=== PATIENT | male | born 1945 | race Caucasian/White ===

== ENCOUNTER 2022-09-18 07:58 | Inpatient (IN) ==
[2022-09-18] MEDS ORDERED: HYDROmorphone 1 MG/ML SYRINGE IV ONE ×2 (08:08→11:25)
--- NOTE | 2022-09-18 08:08 | Emergency Department Note ---
HPI General Chief complaint: Fall Stated complaint: Fall Time Seen by Provider: 09/18/22 08:07 Source: EMS Mode of arrival: EMS Limitations: physical limitation History of Present Illness HPI Narrative: Narrative: Patient is a 76-year-old male with no significant past medical history who presents to the emergency department due to fall. Patient states that this morning at 6 AM he slipped and fell onto his right side. He states that he immediately had significant pain of his right hip. He states that he was unable to get up to walk due to the pain. He states that he was able to get up with a walker and put some pressure on that right leg, but states that it was very painful. He denies hitting his head. He states he did not have loss of consciousness, and remembers the entire event. He denies headache, nausea, vomiting at this time. He states that he has lower back pain, but that this is not any different than his normal back pain. He denies any other symptoms at this time. Related Data Allergies Allergy/AdvReac Type Severity Reaction Status Date / Time No Known Drug Allergies Allergy Verified 09/18/22 08:01 Review of Systems ROS ROS Narrative: Narrative: Constitutional: Denies fever or weakness Eyes: Denies eye pain or vision change ENT ED: Denies throat pain, hearing loss or rhinorrhea Cardiovascular: Denies chest pain, dyspnea on exertion, orthopnea or edema Respiratory: Denies shortness of breath or cough Gastrointestinal: Denies abdominal pain, nausea, vomiting, diarrhea, constipation, hematochezia or melena Genitourinary: Denies dysuria, frequency, hematuria or incontinence Musculoskeletal: Reports joint pain (Right hip); Denies back pain or myalgia Integumentary: Denies rash or lesions Neurological: Denies headache, weakness, numbness, confusion, abnormal gait or dizziness Endocrine: Denies fatigue or polyuria Hematological/Lymphatic: Denies easy bleeding or easy bruising [facility] Narrative Patient History Narrative: Narrative: Medical/Surgical/Family History All Active Problems (Updated 09/19/22 @ 16:04 by Alex Dsouza MD) Closed hip fracture (Acute) Encounter for examination required by Department of Transportation (DOT) (Acute) Cellulitis (Acute) Urinary hesitancy (Acute) Low back pain (Acute) History of prostate cancer (Acute) Medical History Low back pain Urinary hesitancy Social History Smoking Status: Never smoker Exam Narrative Narrative: Narrative: General Limitations: physical limitation General appearance: Present alert and in no apparent distress; Absent anxious, appears intoxicated or sleepy Head Head: Present atraumatic and normocephalic Eye Eye: Present PERRL, EOMI and visual cuadra intact; Absent scleral icterus or nystagmus ENT ENT: Present mucous membranes moist; Absent nasal congestion Neck Neck: Present full ROM; Absent tenderness Chest Chest: Present normal inspection and symmetric chest wall rise; Absent tenderness Respiratory Respiratory: Present normal lung sounds bilaterally; Absent respiratory distress or accessory muscle use Cardiovascular Cardiovascular: Present regular rate, normal rhythm and normal heart sounds Adbominal Abdominal: Present soft and normal bowel sounds; Absent distention or tenderness Extremities Extremities: Present normal inspection, full ROM and tenderness (Right hip); Absent pedal edema, pretibial edema or calf tenderness Back Back: Present normal inspection and full ROM; Absent tenderness Neurological Neurological: Present alert and oriented X3 Psychiatric Psychiatric: Present normal affect and normal mood Skin Skin: Present warm (WNL), dry and normal color Course Vital Signs Vital signs: Vital Signs Pulse Rate 76 09/18/22 08:13 Blood Pressure 145/73 09/18/22 08:13 Pulse Oximetry (%) 98 09/18/22 08:13 Temperature 97.9 F 09/19/22 12:55 Pulse Rate 78 09/19/22 12:55 Respiratory Rate 10 L 09/19/22 10:34 Blood Pressure 127/66 09/19/22 12:55 Pulse Oximetry (%) 97 09/19/22 12:55 Oxygen Delivery Method 09/19/22 12:55 Oxygen Flow Rate (L/min) 6 09/19/22 09:55 [facility] MDM Narrative Medical decision making narrative: Narrative: Patient is a 76-year-old male who presents to the emergency department due to right hip pain. Patient had a fall and now has right hip pain and tenderness. X-ray has been performed and demonstrates right femoral neck fracture. I have discussed patient with on-call orthopedist and he has agreed to see and evaluate patient for surgery and admission. Lab Data Result diagrams: 09/18/22 08:36 09/18/22 08:36 Labs: Lab Results 09/18/22 09/18/2222 Range/Units 08:36 08:36 08:36 WBC 6.6 (4.5-11.0) K/mcL RBC 4.90 (4.63-6.08) M/mcL Hgb 13.5 L (13.7-17.5) g/dL Hct 41.4 (40.1-51.0) % POC Hct (41-55) MCV 84.5 (80.0-100.0) fL MCH 27.6 (26.0-34.0) pg MCHC 32.6 (31.0-36.0) g/dL RDW 13.0 (11.5-14.5) % Plt Count 224 (140-440) K/mcL MPV 10.1 (8.8-12.5) fL Immature Gran % (Auto) 0.6 H (0.0-0.5) % Neut % (Auto) 83.7 H (38.0-78.0) % Lymph % (Auto) 8.9 L (15.5-49.0) % [place] % (Auto) 6.0 (1.0-12.0) % Eos % (Auto) 0.5 (0.0-7.0) % Baso % (Auto) 0.3 (0.0-2.0) % Lymph # (Auto) 0.59 L (1.50-4.80) K/mcL [place] # (Auto) 0.40 (0.10-0.90) K/mcL Eos # (Auto) 0.03 (0.00-0.70) K/mcL Baso # (Auto) 0.02 (0.00-0.30) K/mcL Immature Gran # 0.04 (0.00-0.05) K/mcl Absolute Neutrophils 5.56 (1.80-8.00) K/mcL PT 13.7 (11.9-14.5) sec INR 1.0 (0.9-1.1) POC Sodium (133-145) Sodium 138 (133-145) mmol/L POC Potassium (3.3-5.1) Potassium 3.5 (3.3-5.1) mmol/L POC Chloride (96-108) Chloride 103 (96-108) mmol/L Carbon Dioxide 25 (22-30) mmol/L POC Total CO2 (22-30) Anion Gap 10.0 (8.0-16.0) POC BUN (6-20) BUN 13 (8-23) mg/dL Creatinine 0.7 (0.7-1.2) mg/dL POC Creatinine (0.6-1.2) GFR Calculation 92 Glucose 109 H (70-105) mg/dL POC Glucose (70-105) Calcium 9.2 (8.6-10.4) mg/dL POC WB Ioniz Calcium (1.16-1.32) Total Bilirubin 0.7 (0.1-1.0) mg/dL AST 30 (<40) U/L ALT 27 (<40) U/L Alkaline Phosphatase 88 (39-117) U/L Total Protein 6.5 (5.9-8.4) gm/dL Albumin 4.2 (3.2-5.2) gm/dL Globulin 2.3 (2.2-3.7) gm/dL Albumin/Globulin Ratio 1.8 (1.0-2.3) 09/18/22 Range/Units 08:41 WBC (4.5-11.0) K/mcL RBC (4.63-6.08) M/mcL Hgb (13.7-17.5) g/dL Hct (40.1-51.0) % POC Hct 42.0 (41-55) MCV (80.0-100.0) fL MCH (26.0-34.0) pg MCHC (31.0-36.0) g/dL RDW (11.5-14.5) % Plt Count (140-440) K/mcL MPV (8.8-12.5) fL Immature Gran % (Auto) (0.0-0.5) % Neut % (Auto) (38.0-78.0) % Lymph % (Auto) (15.5-49.0) % [place] % (Auto) (1.0-12.0) % Eos % (Auto) (0.0-7.0) % Baso % (Auto) (0.0-2.0) % Lymph # (Auto) (1.50-4.80) K/mcL [place] # (Auto) (0.10-0.90) K/mcL Eos # (Auto) (0.00-0.70) K/mcL Baso # (Auto) (0.00-0.30) K/mcL Immature Gran # (0.00-0.05) K/mcl Absolute Neutrophils (1.80-8.00) K/mcL PT (11.9-14.5) sec INR (0.9-1.1) POC Sodium 140 (133-145) Sodium (133-145) mmol/L POC Potassium 3.5 (3.3-5.1) Potassium (3.3-5.1) mmol/L POC Chloride 104 (96-108) Chloride (96-108) mmol/L Carbon Dioxide (22-30) mmol/L POC Total CO2 26.0 (22-30) Anion Gap (8.0-16.0) POC BUN 15 (6-20) BUN (8-23) mg/dL Creatinine (0.7-1.2) mg/dL POC Creatinine 0.7 (0.6-1.2) GFR Calculation Glucose (70-105) mg/dL POC Glucose 107 H (70-105) Calcium (8.6-10.4) mg/dL POC WB Ioniz Calcium 1.16 (1.16-1.32) Total Bilirubin (0.1-1.0) mg/dL AST (<40) U/L ALT (<40) U/L Alkaline Phosphatase (39-117) U/L Total Protein (5.9-8.4) gm/dL Albumin (3.2-5.2) gm/dL Globulin (2.2-3.7) gm/dL Albumin/Globulin Ratio (1.0-2.3) Discharge Plan Patient/Caregiver Discharge Instructions Pt seen by FLOOR SERVICE WORKER SPRING/PA only: No Clinical Impression: Closed hip fracture Activity: ambulate only with your walker, increase activity as tolerated and as instructed Patient Disposition: Xfer As Inpt ([facility]) Discharge Date/Time: 09/18/22 12:22
[2022-09-18 08:44] LABS: POC Calcium, Ionized 1.16 (1.16-1.32); POC Creatinine 0.7 (0.6-1.2); POC Potassium 3.5 (3.3-5.1)
--- NOTE | 2022-09-18 08:52 | XRay Report ---
HISTORY: Fell with right hip pain and tenderness FINDINGS: There is an acute transverse fracture through the femoral neck. There is no impaction but there is mild lateral displacement of the shaft. The femoral head is normal and normally centered within the acetabulum. There is no underlying arthritis. There are numerous radiation implant seeds in the prostate. No bone metastasis are present. There is degenerative disc disease and arthritis at L4-5 and L5-S1. IMPRESSION: Minimally displaced fracture of the right femoral neck Interpreted and Authenticated by: Karri Delgado 09/18/22
--- NOTE | 2022-09-18 08:54 | XRay Report ---
HISTORY: Preop for hip fracture repair FINDINGS: At the left apex overlying the anterior border of the left first rib there is a dense 1.8 cm density. The lungs are otherwise clear and well expanded. The heart size and pulmonary vasculature are normal. There is no pleural effusion. Aorta is mildly tortuous. IMPRESSION: Nodular density in the left upper thorax. Although this could be a lung nodule, I suspected it is a benign growth arising from the left anterior first rib. Follow-up is suggested. Interpreted and Authenticated by: Karri Delgado 09/18/22
[2022-09-18 09:14] LABS: Basophils # (Auto) 0.02 K/mcL (0.00-0.30); Basophils % (Auto) 0.3 % (0.0-2.0); Eosinophils # (Auto) 0.03 K/mcL (0.00-0.70); Eosinophils % (Auto) 0.5 % (0.0-7.0); Hematocrit 41.4 % (40.1-51.0); Hemoglobin 13.5 g/dL (13.7-17.5); Lymphocytes # (Auto) 0.59 K/mcL (1.50-4.80); Lymphocytes % (Auto) 8.9 % (15.5-49.0); Mean Cell Volume 84.5 fL (80.0-100.0); Mean Corpuscular HGB Conc 32.6 g/dL (31.0-36.0); Mean Platelet Volume 10.1 fL (8.8-12.5); Neutrophils % (Auto) 83.7 % (38.0-78.0); Platelet Count 224 K/mcL (140-440); WBC 6.6 K/mcL (4.5-11.0)
[2022-09-18] MEDS ORDERED: TRANEXAMIC ACID 1,000 MG/10 ML VIAL IV ONE (09:39)
[2022-09-18 09:40] LABS: ALT/SGPT 27 U/L (<40); AST/SGOT 30 U/L (<40); Albumin 4.2 gm/dL (3.2-5.2); Albumin/Globulin Ratio 1.8 (1.0-2.3); Alkaline Phosphatase 88 U/L (39-117); Bilirubin,Total 0.7 mg/dL (0.1-1.0); Blood Urea Nitrogen 13 mg/dL (8-23); Calcium 9.2 mg/dL (8.6-10.4); Carbon Dioxide 25 mmol/L (22-30); Chloride 103 mmol/L (96-108); Globulin 2.3 gm/dL (2.2-3.7); Glomerular Filtration Rate 92; Glucose 109 mg/dL (70-105)
[2022-09-18] MEDS ORDERED: ceFAZolin 2 GM in DEXTROSE 5% IN WATER 50 ML IV SCH (09:45)
[2022-09-18 10:10] LABS: Prothrombin Time 13.7 sec (11.9-14.5)
[2022-09-18] MEDS ORDERED: ONDANSETRON 4 MG/2 ML VIAL IV PRN (10:54)
[2022-09-18] MEDS ORDERED: BISACODYL 10 MG SUPP.RECT PR PRN (10:54)
[2022-09-18] MEDS ORDERED: POLYETHYLENE GLYCOL 3350 17 GM PACKET PO PRN (10:54)
[2022-09-18] MEDS ORDERED: morphine 4 MG/ML VIAL IV PRN (10:54)
[2022-09-18] MEDS ORDERED: MAGNESIUM HYDROXIDE 30 ML ORAL.SUSP PO PRN (10:54)
[2022-09-18] MEDS ORDERED: FLEETS ADULT ENEMA PR PRN (10:54)
[2022-09-18] MEDS ORDERED: METHOCARBAMOL 1,000 MG/10 ML VIAL IV PRN (10:59)
[2022-09-18] MEDS ORDERED: POTASSIUM CHLORIDE 40 MEQ in DEXTROSE 5%-1/2NS 1,000 ML IV SCH (11:15)
--- NOTE | 2022-09-18 11:34 | Consultation ---
DATE OF CONSULTATION: 09/18/2022 DATE OF CONSULTATION: 09/18/2022. REASON FOR CONSULTATION: Right hip fracture. HISTORY OF PRESENT ILLNESS: The patient is a 76-year-old male who is otherwise healthy, who fell this morning when he slipped landing on his right hip. He had immediate pain and inability to ambulate. He did use a walker to put some weight on; however, unable to mobilize, thus was brought to the ER for further evaluation and treatment. Upon presentation, he complains of right hip pain. Denies any loss of consciousness or hitting his head. Denies any tingling to the extremity. He does endorse some back pain, but this has been chronic for which he takes anti-inflammatories. PAST MEDICAL HISTORY: Significant for cataracts and prostate cancer, arthritis. ALLERGIES: No known drug allergies. MEDICATIONS: None routinely. SOCIAL HISTORY: He resides with family locally. 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 He does not use any tobacco products. REVIEW OF SYSTEMS: Otherwise negative, other than mentioned in HPI. PHYSICAL EXAMINATION: GENERAL: The patient is alert, oriented, interactive and appropriate. VITAL SIGNS: He is afebrile, temperature of 98.4, blood pressure 122/80, heart rate 77, saturating 99% on room air. EXTREMITIES: Reveals focal injury to the right lower extremity. His foot is slightly shortened and externally rotated. Range of motion was deferred secondary to known fracture. There was no skin breaks throughout the extremity. No evidence of infection throughout the extremity. His knee is supple without joint effusion. No crepitus with palpation throughout. Foot is warm and well-perfused. IMAGING: His plain radiographs of the right hip and AP pelvis demonstrate a displaced femoral neck fracture. LABORATORY DATA: He has a CBC with white count of 6.6, H and H 13.5 and 41, platelets 224. Chemistry with creatinine of 0.7, glucose 109. INR is 1. ASSESSMENT AND PLAN: This is an otherwise healthy 76-year-old male without any cardiac, pulmonary or diabetic history. Nonsmoker with a displaced right femoral neck fracture. Radiographically, he has minimal underlying arthritis. I discussed treatment options with him to include partial versus total hip arthroplasty. I do think given his overall functional status, a total hip arthroplasty would be in his best interest. I discussed what this entails. I discussed that with fractures he do have a bit of a high risk for dislocation as well as leg length discrepancies. However, with the anterior approach do use fluoroscopy intraoperative in minimizing this risk. With partial or laureen hip arthroplasty, there is less risk for dislocation. I do go posteriorly and rehab is a bit longer, especially upfront. I also discussed the risks down the road is for revision given his age and overall functional and health status, he may outlive the partial and will require revision to a total. I discussed both options with him at length. After discussion, he wants to proceed with total hip arthroplasty. Discussed the plan will be to do this in the morning. He understands. We will admit the patient nonweightbearing. We will talk to anesthesia regarding potential for iliofascial block to help with pain control until then. NAYELY:ana Job ID: [id number] Doc ID: [id number] Joya Ortega MD MTDRonald
[2022-09-18] MEDS: ACETAMINOPHEN 500 MG TABLET PO SCH ×2 (14:20→21:50)
[2022-09-18] MEDS: 0.9 % SODIUM CHLORIDE 10 ML SYRINGE IV SCH ×2 (15:47→21:52)
[2022-09-18] MEDS: oxyCODONE HCL 5 MG TABLET PO PRN (20:07)
[2022-09-18] MEDS: DOCUSATE SODIUM 100 MG CAPSULE PO SCH (20:09)
[2022-09-18] MEDS: SENNOSIDES 1 TABLET PO SCH (20:09)
[2022-09-18] MEDS: DEXTROSE 5%-1/2NS W/30MEQ KCL 1,000 ML IV SCH (23:35)
[2022-09-19] MEDS ORDERED: morphine 4 MG/ML VIAL IV PRN
[2022-09-19] MEDS: oxyCODONE HCL 5 MG TABLET PO PRN ×2 (03:39→18:01)
[2022-09-19] MEDS: 0.9 % SODIUM CHLORIDE 10 ML SYRINGE IV SCH ×5 (05:06→20:20)
[2022-09-19] MEDS ORDERED: ACETAMINOPHEN 1,000 MG/100 ML BAG IV SCH ×2 (06:00→14:00)
[2022-09-19] MEDS ORDERED: ceFAZolin 2 GM in DEXTROSE 5% IN WATER 50 ML IV SCH (06:00)
[2022-09-19] MEDS ORDERED: IPRATROPIUM/ALBUTEROL 3 ML AMPUL.NEB NEB PRN ×2 (06:15→08:15)
[2022-09-19] MEDS ORDERED: SCOPOLAMINE 1 PATCH PATCH TOPICAL PRN (06:15)
[2022-09-19] MEDS ORDERED: DEXAMETHASONE 10 MG/ML VIAL ONE (07:05)
[2022-09-19] MEDS ORDERED: PHENYLephrine 1 MG/10 ML SYRINGE (ANEST) ONE (07:05)
[2022-09-19] MEDS ORDERED: ONDANSETRON 4 MG/2 ML VIAL ONE (07:05)
[2022-09-19] MEDS ORDERED: KETAMINE 50 MG/ML Syringe (ANEST) IV ONE (07:05)
[2022-09-19] MEDS ORDERED: TRANEXAMIC ACID 1,000 MG/10 ML VIAL ONE (07:05)
[2022-09-19] MEDS ORDERED: GLYCOPYRROLATE 0.2 MG/ML VIAL IV ONE (07:05)
[2022-09-19] MEDS ORDERED: MAGNESIUM SULFATE 2 GM/50 ML BAG IV ONE (07:05)
[2022-09-19] MEDS ORDERED: ePHEDrine 50 MG/5 ML SYRINGE (ANEST) IV ONE (07:05)
[2022-09-19] MEDS ORDERED: ROPIVACAINE HCL/PF 20 ML VIAL IJ ONE (07:05)
[2022-09-19] MEDS ORDERED: PROPOFOL 200 MG/20 ML VIAL IV ONE (07:05)
[2022-09-19] MEDS ORDERED: LIDOCAINE HCL/PF 100 MG/5 ML SYRINGE IV ONE (07:05)
--- NOTE | 2022-09-19 07:28 | EKG ---
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
[2022-09-19] MEDS ORDERED: MEPERIDINE 25 MG/ML VIAL IV PRN (08:15)
[2022-09-19] MEDS ORDERED: METOPROLOL TARTRATE 5 MG/5 ML VIAL IV PRN (08:15)
[2022-09-19] MEDS ORDERED: ONDANSETRON 4 MG/2 ML VIAL IV PRN (08:15)
[2022-09-19] MEDS ORDERED: HYDROmorphone 0.5 MG/0.5 ML SYRINGE IV PRN (08:15)
[2022-09-19] MEDS ORDERED: ACETAMINOPHEN 1,000 MG/100 ML BAG IV ONE (08:15)
[2022-09-19] MEDS ORDERED: LACTATED RINGERS 250 ML IV PRN (08:15)
[2022-09-19] MEDS ORDERED: LACTATED RINGERS 1,000 ML IV SCH (08:15)
[2022-09-19] MEDS ORDERED: LABETALOL 5 MG/ML ML IV PRN (08:15)
[2022-09-19] MEDS ORDERED: METHOCARBAMOL 1,000 MG/10 ML VIAL IV PRN ×2 (08:15)
[2022-09-19] MEDS ORDERED: fentaNYL 100 MCG/2 ML VIAL IV PRN (08:15)
[2022-09-19] MEDS ORDERED: VANCOMYCIN 1 GM VIAL TOPICAL SCH (09:15)
[2022-09-19] MEDS ORDERED: TRANEXAMIC ACID 1,000 MG/10 ML VIAL IV SCH (09:18)
--- NOTE | 2022-09-19 09:18 | Brief Operative Note ---
Brief Operative Note Date of procedure: 09/19/22 Pre-op diagnosis: right displaced femoral neck fracture Post-op diagnosis: same Procedure: right anterior total hip arthroplaty Grafts/Implants: Yes Anesthesia: GETA and spinal Findings: displaced femoral neck fracture Complications: none Surgeon: Joya Ortega Reed Worker: Byron Houser Estimated blood loss (cc): 200 Tourniquet Time (Minutes): 0 Specimens Removed/Pathology: none sent Condition: stable Disposition: PACU
[2022-09-19] MEDS ORDERED: KETOROLAC 15 MG/ML VIAL IV PRN (09:27)
--- NOTE | 2022-09-19 09:58 | XRay Report ---
HISTORY: FINDINGS: IMPRESSION: 0.6 minutes of fluoroscopy time was used. Interpreted and Authenticated by: Karri Delgado 09/19/22
[2022-09-19] MEDS: LACTATED RINGERS 1,000 ML IV SCH ×2 (12:04→22:25)
--- NOTE | 2022-09-19 15:04 | XRay Report ---
HISTORY: Postop right total hip arthroplasty following femoral neck fracture FINDINGS: There is a well-positioned right total hip prosthesis. There is no fracture or abnormal soft tissue calcification. IMPRESSION: Well-positioned right hip prosthesis Interpreted and Authenticated by: Karri Delgado 09/19/22
[2022-09-19] MEDS: ceFAZolin 1 GM VIAL IV SCH (18:11)
[2022-09-19] MEDS: DEXTROSE 5%-1/2NS W/30MEQ KCL 1,000 ML IV SCH (19:47)
[2022-09-19] MEDS: DOCUSATE SODIUM 100 MG CAPSULE PO SCH ×3 (19:48→20:28)
[2022-09-19] MEDS: ACETAMINOPHEN 500 MG TABLET PO SCH (20:18)
[2022-09-19] MEDS: SENNOSIDES 1 TABLET PO SCH ×2 (20:18→20:28)
[2022-09-19] MEDS: ENOXAPARIN 40 MG/0.4 ML SYRINGE SQ SCH (20:29)
[2022-09-20] MEDS: ceFAZolin 1 GM VIAL IV SCH (00:11)
[2022-09-20] MEDS: LACTATED RINGERS 1,000 ML IV SCH (00:11)
[2022-09-20] MEDS: DEXTROSE 5%-1/2NS W/30MEQ KCL 1,000 ML IV SCH ×2 (00:22→09:30)
[2022-09-20] MEDS: oxyCODONE HCL 5 MG TABLET PO PRN ×4 (02:37→17:00)
[2022-09-20] MEDS: ACETAMINOPHEN 500 MG TABLET PO SCH ×3 (02:39→18:13)
[2022-09-20] MEDS: 0.9 % SODIUM CHLORIDE 10 ML SYRINGE IV SCH ×4 (05:17→22:19)
--- NOTE | 2022-09-20 06:19 | Discharge Summary ---
Discharge Provider Provider IMPORTANT FOLLOW-UP INFORMATION FOR PCP: Patient information: Note initiated : 09/20/22 at 6:14 am Service Date, if different from initiated Date: [] Patient: Raman Victor 76 y/o M admitted on 09/18/22 for Fall. Chief Complaint: [Patient presented secondary to mechanical fall resulting in a right hip fracture] Date of admission: 09/18/22 12:30 Discharge date: 09/22/22 Primary care physician: Kai Woodson MD Admitting clinician: Joya Ortega Attending physician on admission: Joya Ortega Consults: Physical Therapy Case Management to help with disposition Attending physician on discharge: Joya Ortega Discharging clinician: Joya Ortega COURSE Hospital Course Hospital course: Admitted on for right hip fracture. Underwent right total hip arthroplasty on and monitored post operatively until . Pain was controlled on oral pain medications, ambulated with a walker, worked with therapy. He was a bit unstable and fatigue easily on post op day one. He did not feel he was able to be safe with going home. Was able to void, tolerate an oral diet by . He was hemodynamically stable throughout his stay. H/H was stable on post op day 2. However, given his failure to be independent and easily fatiguable with only ambulating short distance was felt a short term stay at a SNF was indicated. Discharged on POD 4 to SNF. Discharge diagnosis: right hip fracture Reason for admission: right hip fracture Procedures: right anterior total hip arthroplasty Pertinent studies/significant findings: radiographs with a right hip fracture Complications: none Time Spent with Patient Time attestation: Total time spent providing and/or coordinating discharge services: Time spent: Less than 30 minutes Physical Examination Narrative Exam Narrative: alert and appropriate. -Silver dressing in place to right hip. Dry and intact. Foot warm well perfused. Exam Incision healing: Yes Incision draining: No Incision red: No Incision swollen: Yes Incision inflamed: Yes Clean and dry: Yes Weight bearing status: full Discharge Instructions - [facility] Patient Instructions Total Hip Protocol: Follow activity instructions as provided by Physical Therapy. Discharge Plan Patient/Caregiver Discharge Instructions Activity: ambulate only with your walker, increase activity as tolerated and as instructed Diet: Regular Diet Activity Restrictions/Additional Instructions: -weight bearing as tolerated- use a walker or crutches as needed -the silver dressing on your hip is ok to get wet. Ok to shower with it in place. Do not remove until your follow up appointment. If the edges wrinkle and water gets under the dressing, remove the dressing and replace with dry gauze (stop getting the incision wet if this happens). -Start physical therapy while at the long term facility. Until then, work on tightening and relaxing your thigh muscles. Tighten your thigh muscles and lift your leg. Work on moving your ankle up and down. Tighten and relax your butt muscles. Walk several times throughout the day. -Ice your hip for 20-30 minutes every 2-3 hours throughout the day -Aspirin is 81mg twice a day for 30 days to help prevent blood clots -Celebrex is an anti inflammatory that will also help with pain and swelling. Only take this for 2 weeks. -Tylenol is to help with the pain, take this scheduled every 8 hours even if you do not have significant pain -Oxycodone is the narcotic pain medication which to be taken as needed. Meaning only take it if the other pain medications are not sufficient in controlling your pain. -Robaxin is a muscle relaxer which can help with spasms/pain -miralax/docusate are stool softners as the narcotic pain medication can result in constipation Prescriptions: New methocarbamol 500 mg Tablet 500 mg PO TIDP PRN (Reason: Muscle Spasm) Qty: 20 0RF polyethylene glycol 3350 [HealthyLax] 17 gram Powder In Packet 17 gm PO DAILYP PRN (Reason: Constipation) Qty: 14 0RF acetaminophen 500 mg Tablet 1,000 mg PO Q8H Qty: 90 0RF docusate sodium 100 mg Capsule 100 mg PO BID Qty: 60 0RF oxycodone 5 mg Tablet 5 - 10 mg PO Q4HP PRN (Reason: Per Pain Protocol) Qty: 60 0RF aspirin 81 mg capsule 81 mg PO BID Qty: 60 0RF celecoxib [Celebrex] 100 mg capsule 100 mg PO BID Qty: 28 0RF Other Ambulatory Orders: Physical Therapy at Discharge - [facility] (Routine) Location: None Selected Ordered By: Joya Baer (ONCE) Location: None Selected Ordered By: Joya Ortega Follow Up Plan Follow up with: Kai Woodson MD [Primary Care Provider] - Byron Houser PA-C [Physician Senior Radiation Protection Technician] - (10-13 days for post op care) Patient Disposition: Xfer SNF Rehab Potential: Good I certify that the patient requires SNF services: Yes Overall status at discharge: patient is not back to baseline Discharge Orders: Discharge Order (Routine); Ordered 09/22/22 Ordered By: Byron Houser Pending Pending Pending: Diet Regular Diet Start ThuSep 19 919 Acetaminophen (Acetaminophen 500 Mg Tablet) 1,000 mg PO Q8H [facility]; Protocol Last Admin: 09/20/22 02:39 Dose: Not Given Documented By: Admin: 09/19/22 20:18 Dose: 1,000 mg Documented By: BRETT Docusate Sodium (Docusate Sodium 100 Mg Capsule) 100 mg PO BID [facility] Last Admin: 09/19/22 20:28 Dose: Not Given Documented By: Admin: 09/19/22 19:48 Dose: Not Given Documented By: Admin: 09/18/22 20:09 Dose: Not Given Documented By: BRETT Enoxaparin Sodium (Enoxaparin 40 Mg/0.4 Ml Syringe) 40 mg SQ DAILY [facility] Last Admin: 09/19/22 20:29 Dose: 40 mg Documented By: BRETT Potassium Chloride/Dextrose/Sod Cl (Dextrose 5%-1/2ns W/30meq Kcl) 1,000 mls @ 125 mls/hr IV Q8H [facility] Last Admin: 09/20/22 00:22 Dose: Not Given Documented By: Admin: 09/19/22 19:47 Dose: Not Given Documented By: Admin: 09/19/22 19:47 Dose: Not Given Documented By: Infusion: 09/19/22 12:03 Dose: 125 mls/hr Documented By: Admin: 09/18/22 23:35 Dose: 125 mls/hr Documented By: BRETT Lactated Ringer's (Lactated Ringers) 1,000 mls @ 75 mls/hr IV .[id number] [facility] Last Admin: 09/20/22 00:11 Dose: 75 mls/hr Documented By: Infusion: 09/20/22 00:11 Dose: 75 mls/hr Documented By: Admin: 09/19/22 22:25 Dose: Not Given Documented By: Admin: 09/19/22 12:04 Dose: 75 mls/hr Documented By: ART Oxycodone HCl (Oxycodone Hcl 5 Mg Tablet) 5 - 10 mg PO Q4HP PRN; Protocol PRN Reason: Per Pain Protocol Last Admin: 09/20/22 02:37 Dose: 5 mg Documented By: Admin: 09/19/22 18:01 Dose: 5 mg Documented By: Admin: 09/19/22 03:39 Dose: 5 mg Documented By: Admin: 09/18/22 20:07 Dose: 5 mg Documented By: BRETT Senna (Sennosides 1 Tablet) 2 tab PO [facility] Last Admin: 09/19/22 20:28 Dose: Not Given Documented By: Admin: 09/18/22 20:09 Dose: Not Given Documented By: BRETT Sodium Chloride (0.9 % Sodium Chloride 10 Ml Syringe) 10 ml IV Q8 [facility] Last Admin: 09/20/22 05:17 Dose: Not Given Documented By: Admin: 09/19/22 20:19 Dose: Not Given Documented By: Admin: 09/19/22 15:51 Dose: Not Given Documented By: Admin: 09/19/22 05:06 Dose: Not Given Documented By: Admin: 09/18/22 21:52 Dose: 10 ml Documented By: Admin: 09/18/22 15:47 Dose: 10 ml Documented By: ART Sodium Chloride (0.9 % Sodium Chloride 10 Ml Syringe) 10 ml IV Q8 [facility] Last Admin: 09/20/22 05:17 Dose: Not Given Documented By: Admin: 09/19/22 20:20 Dose: Not Given Documented By: Admin: 09/19/22 15:51 Dose: Not Given Documented By: ART Shift Summary 09/20/22 03:44 Shift Summary by Aysha Gupta Primary Diagnosis: Fall Registration Status: IP Date of Surgery (if applicable): Right anterior [facility] 09/19/22 Pertinent Medical Dx/Issue(s): Low back pain, Prostate CA, Cellulitis Med management (antibiotics, diuretics, BP): IV fluids, Pain meds Skin/Wound Care: RLE leslie abrasion, Right hip with surgical silver dressing Vital Signs with Trends: VSS O2, liter flow/saturations: RA Pain management (acute vs. chronic): X1 Oxy, Schedule Tylenol Neuro/Mental Status: A&OX4 Urinary Elimination Device: Urinal Urinary output greater than 30mL/hr? Yes Date of last BM: 09/17/22 Lines/Tubes: L hand infusing LR at 75ml/hr, R hand SL Activity: X1 assist with FWW and GB Discharge Plan (needs, disposition, etc): TBD Initialized on 09/20/22 03:44 - END OF NOTE
--- NOTE | 2022-09-20 06:40 | Orthopedic Progress Note ---
SUBJECTIVE Subjective Patient information: Note initiated : 09/20/22 at 6:36 am Service Date, if different from initiated Date: [] Patient: Raman Victor 76 y/o M admitted on 09/18/22 for Fall. Chief Complaint: [No acute issues overnight. Pain is controlled. Ambulated but felt unsteady.] Constitutional Vitals: Vital Signs Temp Pulse Resp BP Pulse Ox O2 Del Method O2 Flow Rate 98.4 F 94 H 16 121/66 96 6 09/20/22 03:05 09/20/22 03:05 09/20/22 03:05 09/20/22 03:05 09/20/22 03:05 09/19/22 23:31 09/19/22 09:55 Period Temp Pulse Resp BP Sys/Bhandari Pulse Ox O2 Del Method O2 Flow Rate Last 24 Hr 97.0 F-98.4 F 63-94 4-16 112-161/56-96 94-100 Room Air-Room Air 6-6 Intake and Output 09/19/22 09/20/22 09/20/22 19:59 03:59 11:59 Intake Total 1000 1209 Output Total 2000 400 Balance -1000 809 Weight 241 lb 9.6 oz Intake & Output: Intake & Output 09/19/22 09/20/22 09/20/22 19:59 03:59 11:59 Intake Total 1000 1209 Output Total 2000 400 Balance -1000 809 Weight 241 lb 9.6 oz Intake: IV 1000 909 Dextrose 5%-1/2Ns W/30Meq KCl 1 1000 ,000 ml @ 125 mls/hr IV Q8H [facility] Rx#:[id number] Lactated Ringers 1,000 ml @ 75 909 mls/hr IV .[id number] FAM Rx#: [id number] Oral 300 Output: Void Amount 1999 400 Other: Meal Lunch Percent of Meal Consumed 100% Feeding Ability Independent Urine Appearance Clear Urine Color Yellow Yellow Urine Odor Normal Normal Additional findings Additional findings: alert and appropriate right hip: dressing in place- clean and dry. Some erythema around dressing. Positive swelling OBJ DATA Labs CBC & Chem 7: 09/18/22 08:36 09/18/22 08:36 Labs: Abnormal Lab Results 09/18/22 09/18/22 09/18/22 08:41 08:36 08:36 Hgb 13.5 L Immature Gran % (Auto) 0.6 H Neut % (Auto) 83.7 H Lymph % (Auto) 8.9 L Lymph # (Auto) 0.59 L Glucose 109 H POC Glucose 107 H Meds: Medications Acetaminophen (Acetaminophen 500 Mg Tablet) 1,000 mg PO Q8H [facility]; Protocol Last Admin: 09/20/22 02:39 Dose: Not Given Bisacodyl (Bisacodyl 10 Mg Supp.Rect) 10 mg SC Q2-3DAYS PRN PRN Reason: Constipation Docusate Sodium (Docusate Sodium 100 Mg Capsule) 100 mg PO BID [facility] Last Admin: 09/19/22 20:28 Dose: Not Given Enoxaparin Sodium (Enoxaparin 40 Mg/0.4 Ml Syringe) 40 mg SQ DAILY [facility] Last Admin: 09/19/22 20:29 Dose: 40 mg Potassium Chloride/Dextrose/Sod Cl (Dextrose 5%-1/2ns W/30meq Kcl) 1,000 mls @ 125 mls/hr IV Q8H [facility] Last Admin: 09/20/22 00:22 Dose: Not Given Lactated Ringer's (Lactated Ringers) 1,000 mls @ 75 mls/hr IV .[id number] [facility] Last Admin: 09/20/22 00:11 Dose: 75 mls/hr Ketorolac Tromethamine (Ketorolac 15 Mg/Ml Vial) 15 mg IV Q6HP PRN; Protocol PRN Reason: Per Pain Protocol Stop: 09/21/22 09:26 Magnesium Hydroxide (Magnesium Hydroxide 30 Ml Oral.Susp) 30 ml PO BIDP PRN PRN Reason: Constipation Methocarbamol (Methocarbamol 500 Mg Tablet) 500 mg PO TIDP PRN PRN Reason: Muscle Spasm Morphine Sulfate (Morphine 4 Mg/Ml Vial) 2 - 4 mg IV Q2HP PRN; Protocol PRN Reason: Per Pain Protocol Ondansetron HCl (Ondansetron 4 Mg/2 Ml Vial) 4 mg IV Q4HP PRN; Protocol PRN Reason: Nausea And Vomiting Oxycodone HCl (Oxycodone Hcl 5 Mg Tablet) 5 - 10 mg PO Q4HP PRN; Protocol PRN Reason: Per Pain Protocol Last Admin: 09/20/22 02:37 Dose: 5 mg Polyethylene Glycol (Polyethylene Glycol 3350 17 Gm Packet) 17 gm PO DAILYP PRN PRN Reason: Constipation Senna (Sennosides 1 Tablet) 2 tab PO HS [facility] Last Admin: 09/19/22 20:28 Dose: Not Given Sodium Biphosphate/Sodium Phosphate (Fleets Adult Enema) 1 dose SC Q3-4DAYS PRN PRN Reason: Constipation Sodium Chloride (0.9 % Sodium Chloride 10 Ml Syringe) 10 ml IV Q8 [facility] Last Admin: 09/20/22 05:17 Dose: Not Given Sodium Chloride (0.9 % Sodium Chloride 10 Ml Syringe) 10 ml IV Q8 [facility] Last Admin: 09/20/22 05:17 Dose: Not Given A/P Assessment and plan (1) Closed hip fracture: Assessment and plan: 76 year old male POD 1 s/p right anterior total hip arthroplasty -- weight bearing as tolerated ----PT ----redness around incision is from retractors. -- oral pain medications -- oral diet --Prophy: lovenox while inpt, IS, mobilization, foot pumps --Dispo: pending- plan was for d/c home however, patient's has a disability. Will see how he does today with therpay/mobilization and determine. If not progressing well, may require home health or short stay at a SNF. Status: Acute Time Spent With Patient Time: Total time spent is greater than 50% in coordination of care (as documented) at patient's floor/unit and/or counseling patient:
[2022-09-20] MEDS: ENOXAPARIN 40 MG/0.4 ML SYRINGE SQ SCH (09:33)
[2022-09-20] MEDS: DOCUSATE SODIUM 100 MG CAPSULE PO SCH ×2 (09:33→20:19)
[2022-09-20] MEDS ORDERED: CALCIUM CARBONATE 500 MG TAB.CHEW CHEWED PRN (15:18)
[2022-09-20] MEDS: METHOCARBAMOL 500 MG TABLET PO PRN (17:00)
[2022-09-20] MEDS: SENNOSIDES 1 TABLET PO SCH (20:18)
[2022-09-21] MEDS: ACETAMINOPHEN 500 MG TABLET PO SCH ×3 (01:17→18:02)
[2022-09-21] MEDS: 0.9 % SODIUM CHLORIDE 10 ML SYRINGE IV SCH ×3 (05:29→20:01)
--- NOTE | 2022-09-21 06:45 | Orthopedic Progress Note ---
SUBJECTIVE Subjective Patient information: Note initiated : 09/21/22 at 6:41 am Service Date, if different from initiated Date: [] Patient: Raman Victor 76 y/o M admitted on 09/18/22 for Fall. Chief Complaint: [No acute issues overnight. Pain controlled. When walking gets a bit dizzy. Does not complain of shortness of breath/chest pain.] Constitutional Vitals: Vital Signs Temp Pulse Resp BP Pulse Ox O2 Del Method O2 Flow Rate 97.9 F 75 16 130/68 95 6 09/21/22 04:12 09/21/22 04:12 09/21/22 04:12 09/21/22 04:12 09/21/22 04:12 09/21/22 04:12 09/19/22 09:55 Period Temp Pulse Resp BP Sys/Bhandari Pulse Ox O2 Del Method O2 Flow Rate Last 24 Hr 97.4 F-98.5 F 75-99 12-16 110-134/61-71 95-97 Room Air-Room Air Intake and Output 09/20/22 09/21/22 09/21/22 19:59 03:59 11:59 Intake Total 237 0 Output Total 500 Balance -263 0 Weight 238 lb 8 oz Intake & Output: Intake & Output 09/20/22 09/21/22 09/21/22 19:59 03:59 11:59 Intake Total 237 0 Output Total 500 Balance -263 0 Weight 238 lb 8 oz Intake: Oral 237 0 Output: Void Amount 500 Other: # Voids 1 Additional findings Additional findings: alert and appropriate -right hip: dressing clean dry and intact. swelling as expected, bruising noted. foot warm well perfused. OBJ DATA Labs CBC & Chem 7: 09/18/22 08:36 09/18/22 08:36 Labs: Abnormal Lab Results 09/18/22 09/18/22 09/18/22 08:41 08:36 08:36 Hgb 13.5 L Immature Gran % (Auto) 0.6 H Neut % (Auto) 83.7 H Lymph % (Auto) 8.9 L Lymph # (Auto) 0.59 L Glucose 109 H POC Glucose 107 H Meds: Medications Acetaminophen (Acetaminophen 500 Mg Tablet) 1,000 mg PO Q8H [facility]; Protocol Last Admin: 09/21/22 01:17 Dose: 1,000 mg Bisacodyl (Bisacodyl 10 Mg Supp.Rect) 10 mg CO Q2-3DAYS PRN PRN Reason: Constipation Calcium Carbonate/Glycine (Calcium Carbonate 500 Mg Tab.Chew) 500 mg CHEWED Q4HP PRN PRN Reason: Dyspepsia Docusate Sodium (Docusate Sodium 100 Mg Capsule) 100 mg PO BID [facility] Last Admin: 09/20/22 20:19 Dose: 100 mg Enoxaparin Sodium (Enoxaparin 40 Mg/0.4 Ml Syringe) 40 mg SQ DAILY [facility] [place] Last Admin: 09/20/22 09:33 Dose: 40 mg Ibuprofen (Ibuprofen 600 Mg Tablet) 600 mg PO TIDP PRN; Protocol PRN Reason: PAIN/FEVER > 101 Magnesium Hydroxide (Magnesium Hydroxide 30 Ml Oral.Susp) 30 ml PO BIDP PRN PRN Reason: Constipation Methocarbamol (Methocarbamol 500 Mg Tablet) 500 mg PO TIDP PRN PRN Reason: Muscle Spasm Last Admin: 09/20/22 17:00 Dose: 500 mg Morphine Sulfate (Morphine 4 Mg/Ml Vial) 2 - 4 mg IV Q2HP PRN; Protocol PRN Reason: Per Pain Protocol Ondansetron HCl (Ondansetron 4 Mg/2 Ml Vial) 4 mg IV Q4HP PRN; Protocol PRN Reason: Nausea And Vomiting Oxycodone HCl (Oxycodone Hcl 5 Mg Tablet) 5 - 10 mg PO Q4HP PRN; Protocol PRN Reason: Per Pain Protocol Last Admin: 09/20/22 17:00 Dose: 5 mg Polyethylene Glycol (Polyethylene Glycol 3350 17 Gm Packet) 17 gm PO DAILYP PRN PRN Reason: Constipation Senna (Sennosides 1 Tablet) 2 tab PO HS [facility] [place] Last Admin: 09/20/22 20:18 Dose: 2 tab Sodium Biphosphate/Sodium Phosphate (Fleets Adult Enema) 1 dose CO Q3-4DAYS PRN PRN Reason: Constipation Sodium Chloride (0.9 % Sodium Chloride 10 Ml Syringe) 10 ml IV Q8 [facility] [place] Last Admin: 09/21/22 05:29 Dose: 10 ml A/P Assessment and plan (1) Closed hip fracture: Assessment and plan: POD 2 s/p right anterior total hip arthroplasty ---weight bearing as tolerated -----PT --- will get cbc this AM, bit dizzy when walking however, is not getting out of bed much. -- Encouraged to sit in chair for meals and throughout the day. Oral hygiene, use the restroom rather than urinal. -- Prophy: IS, foot pumps, lovenox, mobilization -- Dispo: does not appear to be very independent and no help at home. Will plan for SNF, likely tomorrow. Status: Acute Time Spent With Patient Time: Total time spent is greater than 50% in coordination of care (as documented) at patient's floor/unit and/or counseling patient:
[2022-09-21 07:31] LABS: Basophils # (Auto) 0.05 K/mcL (0.00-0.30); Basophils % (Auto) 0.6 % (0.0-2.0); Eosinophils # (Auto) 0.36 K/mcL (0.00-0.70); Eosinophils % (Auto) 4.5 % (0.0-7.0); Hematocrit 31.1 % (40.1-51.0); Hemoglobin 10.1 g/dL (13.7-17.5); Lymphocytes # (Auto) 1.09 K/mcL (1.50-4.80); Lymphocytes % (Auto) 13.5 % (15.5-49.0); Mean Cell Volume 86.1 fL (80.0-100.0); Mean Corpuscular HGB Conc 32.5 g/dL (31.0-36.0); Mean Platelet Volume 10.5 fL (8.8-12.5); Monocytes # (Auto) 1.01 K/mcL (0.10-0.90); Monocytes % (Auto) 12.5 % (1.0-12.0); Neutrophils % (Auto) 68.4 % (38.0-78.0); Platelet Count 183 K/mcL (140-440); RBC 3.61 M/mcL (4.63-6.08); WBC 8.1 K/mcL (4.5-11.0)
[2022-09-21] MEDS: oxyCODONE HCL 5 MG TABLET PO PRN ×3 (07:34→18:03)
[2022-09-21 08:07] LABS: Blood Urea Nitrogen 19 mg/dL (8-23); Calcium 8.2 mg/dL (8.6-10.4); Carbon Dioxide 26 mmol/L (22-30); Chloride 101 mmol/L (96-108); Glomerular Filtration Rate 92; Glucose 107 mg/dL (70-105)
[2022-09-21] MEDS: IBUPROFEN 600 MG TABLET PO PRN ×2 (10:53→19:58)
[2022-09-21] MEDS: DOCUSATE SODIUM 100 MG CAPSULE PO SCH ×2 (10:53→19:59)
[2022-09-21] MEDS: ENOXAPARIN 40 MG/0.4 ML SYRINGE SQ SCH (10:53)
[2022-09-21] MEDS: METHOCARBAMOL 500 MG TABLET PO PRN (10:53)
[2022-09-21] MEDS: SENNOSIDES 1 TABLET PO SCH (19:59)
[2022-09-22] MEDS: ACETAMINOPHEN 500 MG TABLET PO SCH ×2 (01:50→09:56)
[2022-09-22] MEDS: 0.9 % SODIUM CHLORIDE 10 ML SYRINGE IV SCH (05:35)
--- NOTE | 2022-09-22 06:54 | Orthopedic Progress Note ---
SUBJECTIVE Subjective Patient information: Note initiated : 09/22/22 at 6:51 am Service Date, if different from initiated Date: [] Patient: Raman Victor 76 y/o M admitted on 09/18/22 for Fall. Chief Complaint: [] Interval history: POD 3 s/p right total hip arthroplasty for right hip fracture. Patient is doing well but has not yet had a BM. No other acute complaints. Constitutional Vitals: Vital Signs Temp Pulse Resp BP Pulse Ox O2 Del Method O2 Flow Rate 97.5 F 78 16 142/80 97 6 09/22/22 03:43 09/22/22 03:43 09/22/22 03:43 09/22/22 03:43 09/22/22 03:43 09/22/22 03:43 09/19/22 09:55 Period Temp Pulse Resp BP Sys/Bhandari Pulse Ox O2 Del Method O2 Flow Rate Last 24 Hr 97.2 F-98.0 F 77-88 16-20 106-142/65-80 94-98 Room Air-Room Air Intake and Output 09/21/22 09/22/22 09/22/22 19:59 03:59 11:59 Intake Total 2040 500 Output Total 2550 300 Balance -510 -300 500 Weight 239 lb Intake & Output: Intake & Output 09/21/22 09/22/22 09/22/22 19:59 03:59 11:59 Intake Total 2040 500 Output Total 2550 300 Balance -510 -300 500 Weight 239 lb Intake: Oral 640 500 GI Tube Flush 1400 Output: Void Amount 2550 300 Other: Meal Dinner Percent of Meal Consumed 100% Feeding Ability Independent Urine Appearance Clear Clear Urine Color Yellow Yellow Urine Odor Normal Additional findings Additional findings: Dressings dry and intact, bruising and mild swelling in right hip, no signs of infection, no calf pain bilaterally OBJ DATA Labs CBC & Chem 7: 09/21/22 06:50 09/21/22 06:50 Labs: Abnormal Lab Results 09/21/22 09/21/22 06:50 06:50 RBC 3.61 L Hgb 10.1 L Hct 31.1 L Lymph % (Auto) 13.5 L Moca % (Auto) 12.5 H Lymph # (Auto) 1.09 L Moca # (Auto) 1.01 H Glucose 107 H Calcium 8.2 L Meds: Medications Acetaminophen (Acetaminophen 500 Mg Tablet) 1,000 mg PO Q8H [facility]; Protocol Last Admin: 09/22/22 01:50 Dose: 1,000 mg Bisacodyl (Bisacodyl 10 Mg Supp.Rect) 10 mg SC Q2-3DAYS PRN PRN Reason: Constipation Calcium Carbonate/Glycine (Calcium Carbonate 500 Mg Tab.Chew) 500 mg CHEWED Q4HP PRN PRN Reason: Dyspepsia Docusate Sodium (Docusate Sodium 100 Mg Capsule) 100 mg PO BID [facility] Last Admin: 09/21/22 19:59 Dose: 100 mg Enoxaparin Sodium (Enoxaparin 40 Mg/0.4 Ml Syringe) 40 mg SQ DAILY [facility] Last Admin: 09/21/22 10:53 Dose: 40 mg Ibuprofen (Ibuprofen 600 Mg Tablet) 600 mg PO TIDP PRN; Protocol PRN Reason: PAIN/FEVER > 101 Last Admin: 09/21/22 19:58 Dose: 600 mg Magnesium Hydroxide (Magnesium Hydroxide 30 Ml Oral.Susp) 30 ml PO BIDP PRN PRN Reason: Constipation Methocarbamol (Methocarbamol 500 Mg Tablet) 500 mg PO TIDP PRN PRN Reason: Muscle Spasm Last Admin: 09/21/22 10:53 Dose: 500 mg Morphine Sulfate (Morphine 4 Mg/Ml Vial) 2 - 4 mg IV Q2HP PRN; Protocol PRN Reason: Per Pain Protocol Ondansetron HCl (Ondansetron 4 Mg/2 Ml Vial) 4 mg IV Q4HP PRN; Protocol PRN Reason: Nausea And Vomiting Oxycodone HCl (Oxycodone Hcl 5 Mg Tablet) 5 - 10 mg PO Q4HP PRN; Protocol PRN Reason: Per Pain Protocol Last Admin: 09/21/22 18:03 Dose: 10 mg Polyethylene Glycol (Polyethylene Glycol 3350 17 Gm Packet) 17 gm PO DAILYP PRN PRN Reason: Constipation Last Admin: 09/22/22 03:49 Dose: 17 gm Senna (Sennosides 1 Tablet) 2 tab PO HS [facility] Last Admin: 09/21/22 19:59 Dose: 2 tab Sodium Biphosphate/Sodium Phosphate (Fleets Adult Enema) 1 dose SC Q3-4DAYS PRN PRN Reason: Constipation Sodium Chloride (0.9 % Sodium Chloride 10 Ml Syringe) 10 ml IV Q8 [facility] Last Admin: 09/22/22 05:35 Dose: 10 ml A/P Assessment and plan (1) Closed hip fracture: Status: Acute Comment: Plan for discharge to SNF today. See discharge instructions in discharge george mmary. Time Spent With Patient Time: Total time spent is greater than 50% in coordination of care (as documented) at patient's floor/unit and/or counseling patient:
[2022-09-22] MEDS: DOCUSATE SODIUM 100 MG CAPSULE PO SCH (07:50)
[2022-09-22] MEDS: IBUPROFEN 600 MG TABLET PO PRN (07:50)
[2022-09-22] MEDS: ENOXAPARIN 40 MG/0.4 ML SYRINGE SQ SCH (07:50)
--- NOTE | 2022-09-22 08:29 | Operative Note ---
DATE OF OPERATION: 09/19/2022 DATE OF PROCEDURE: 09/19/2022 PREOPERATIVE DIAGNOSIS: Displaced right femoral neck fracture. POSTOPERATIVE DIAGNOSIS: Displaced right femoral neck fracture. PROCEDURE PERFORMED: Right anterior total hip arthroplasty. SURGEON: Joya Ortega M.D. CUTTER WET MACHINE: Byron Houser PA-C. The expertise and technical skill of this provider were required throughout the case. The PA assisted with preoperative coordination, intraoperative retraction, wound closure, and dressing and splint application, as well as postoperative documentation and care coordination. ANESTHESIA: General with spinal. INTRAVENOUS FLUIDS: A liter lactated Ringer's. ESTIMATED BLOOD LOSS: 200 mL. ANTIBIOTICS: 2 grams Ancef. IMPLANTS: A DePuy ACTIS size 10 standard neck stem, size 58 mm cup, neutral liner with a +8.5, 36 mm ceramic head ball. INTRAOPERATIVE COMPLICATIONS: None apparent. PATHOLOGY/LAB: None. INDICATIONS FOR PROCEDURE: The patient is a 76-year-old male who had a fall from a mechanical nature, resulting in a displaced femoral neck fracture. He is a relatively healthy chani with a good overall functional level. I discussed this with him along with treatment options including laureen versus total. I discussed and reviewed benefits of either and the risk of either. He understands and wished to proceed with total hip arthroplasty. DESCRIPTION OF PROCEDURE: Patient was met in the preoperative holding area where site was verified and marked with the patient's input. He was taken back to the operating room, had a spinal and then started general anesthesia. He was placed on the [place] table with padded boots in place as well as a padded perineal post placed. The right hip was then prepped and draped in the usual sterile fashion with ChloraPrep. Surgical timeout was performed to verify patient's identity, correct procedure being performed, and correct extremity being operated on. Everybody was in agreement. I made approximately an 8 cm incision 2 fingerbreadths distal to the ASIS and 2 fingerbreadths lateral. Skin was sharply incised and hemostasis obtained with electrocautery device. Dissection was taken down to the tensor fascia. The fascia was incised with a clean 15 blade and the muscle was elevated off and bluntly dissected over to the femoral neck. A lighted Cobra retractor was placed over top of this as well as an additional one over the inferior neck. Lateral circumflex vessels were identified and cauterized with the Aquamantys device. The fat was removed over the anterior capsule and a bent Hohmann was placed over the superior acetabulum as well to further expose the capsule. A capsulotomy was created in an inverted T fashion and the ends were tagged with Ethibond suture. The Cobra retractor was placed within the capsule and the capsule was released on the anterior inferior, trialing posteriorly on the inferior neck. This was done with external rotation of the leg itself. This was also elevated off over to the superior aspect of the femoral neck. Once complete, I did place three turns of traction onto the leg itself. The fracture line was easily evident and from preoperative templating the fracture extent on the neck was a bit short. Thus, I did not create any additional cut from this medial calcar region. This was just cleaned up over to the saddle of the superior neck. The bone fragments were removed. The head ball was removed in an atraumatic fashion. The Cobra retractor was placed on the anterior and posterior aspects of the acetabulum and an additional one over the superior rim. The labrum was excised. The contents of the cotyloid fossa were excised. We brought in fluoroscopy and reamed starting with a 49 mm reamer, reaming up to 57 with good overall fill of the acetabulum. Utilizing the navigation system we got our inclination to approximately 40, and version 24. I was happy with overall appearance as it did match the anterior aspect of the acetabulum. Once this was complete, I did impact the final cup into place with good overall press fit. We placed one screw just for reassurance. The manhole cover was placed. Liner was impacted. The femoral neck was further exposed. We placed a retractor on the medial calcar with external rotation 120 degrees of the leg and then extended and adducted. The capsule laterally was elevated out to the greater trochanter and elevated posteriorly as well. A bent retractor was placed over top of the greater trochanter and further elevated the femoral neck into view. Utilizing a switch box installer, canal finder and a pigtail rasp to gain entry into the canal we broached up to a size 8 and 9 relatively easily. We did have rotational control, but arthroscopy did appear to be undersized. Thus, I did size it to a 10. Utilizing a standard neck along with a +5 head ball we knew we would be a bit short just from where the medial calcar fracture extended to. This was still about 7 mm short so we did size up to 8.5. With this construct and a 10 mm stem we were approximately 3 mm short and offset was somewhat increased just from appearance radiographically; however, it was stable and I was happy with the overall construct and elected to proceed in this fashion. The joint was dislocated and the trial implants were removed. Final components were impacted into place, the head ball with the same measurements. The wound was copiously irrigated and soaked in 0.35% Betadine solution for greater than 3 minutes. This was pulse lavaged out. We placed vancomycin powder deep in the wound. The capsule was closed with #2 Ethibond interrupted fashion. The tensor fascia was closed with 2-0 Vicryl in running fashion. I placed vancomycin powder in the subcutaneous tissue. The deep layers were closed with layered 2-0 Vicryl, 3-0 Vicryl and subcutaneous running 3-0 Monocryl. The skin was then cleaned and dried. We placed Steris and silver dressing. The patient awoke from anesthesia and transferred to PACU in stable condition. POSTOPERATIVE PLAN: The patient will be admitted back to the floor for recovery and likely plan will be for discharge home tomorrow. DLW:jenelle Job ID: [id number] Doc ID: [id number] Joya Ortega MD [facility]
== END 2022-09-22 11:09 | DRG 522 ==
LOC: ED 07:58 → SUR 12:23 → MEDSUR 12:30
PROVIDERS: ADMIT Emergency Medicine; ATTEND Orthopaedic Surgery